=== PATIENT | female | born 1990 | race Caucasian/White ===

== ENCOUNTER 2021-06-28 08:56 | Observation (INO) | payer BC ==
[2021-06-28] MEDS ORDERED: ONDANSETRON 4 MG/2 ML VIAL IVP STA (09:15)
[2021-06-28] MEDS ORDERED: SODIUM CHLORIDE 0.9% 1,000 ML IV ONE (09:16)
--- NOTE | 2021-06-28 09:37 | ED ---
General Adult HPI - General Chief complaint: Arrhythmia/Palpitations Stated complaint: High heart rate Time Seen by Provider: 06/28/21 09:08 Source: patient, RN notes reviewed, old records reviewed Mode of arrival: ambulatory Limitations: no limitations - History of Present Illness Initial comments: 31-year-old female presenting with palpitations and tachycardia over the past approximately one week. Patient states the symptoms began after receiving her coronavirus vaccine. She has had some nausea and vomiting which began today. She's had lightheadedness. No measured fever. No significant dyspnea. - Related Data Previous Rx's Medication Instructions Recorded Amoxicillin/Potassium Clav 1 each PO Q12HR #10 tab 05/19/14 [Augmentin 875-125 Tablet] traMADol HCl [Ultram] 50 mg PO Q4H PRN #20 tab 05/19/14 Allergies Allergy/AdvReac Type Severity Reaction Status Date / Time No Known Allergies Allergy Verified 06/28/21 09:03 Review of Systems ROS Statement: Those systems with pertinent positive or pertinent negative responses have been documented in the HPI. ROS Other: All systems not noted in ROS Statement are negative. Past Medical History Past Medical History: Asthma History of Any Multi-Drug Resistant Organisms: None Reported Past Surgical History: Adenoidectomy, Ear Surgery, Orthopedic Surgery Additional Past Surgical History / Comment(s): eye Past Psychological History: No Psychological Hx Reported Smoking Status: Former smoker Past Alcohol Use History: None Reported Past Drug Use History: None Reported General Exam Limitations: no limitations General appearance: alert, in no apparent distress Head exam: Present: atraumatic, normocephalic Eye exam: Present: normal appearance ENT exam: Present: mucous membranes dry Neck exam: Present: normal inspection. Absent: tenderness, meningismus Respiratory exam: Present: normal lung sounds bilaterally. Absent: respiratory distress, wheezes Cardiovascular Exam: Present: normal rhythm, tachycardia GI/Abdominal exam: Present: soft. Absent: distended, tenderness, guarding Extremities exam: Present: normal inspection, normal capillary refill. Absent: pedal edema, calf tenderness Neurological exam: Present: alert, oriented X3, CN II-XII intact. Absent: motor sensory deficit Psychiatric exam: Present: normal affect, normal mood Skin exam: Present: warm, dry, intact. 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 She does not drink alcohol routinely. EKG Findings - EKG Comments: EKG Findings:: EKG: Normal sinus rhythm, rate of 99, MT interval 132, QRS duration 88, QTC [address] segment elevation. Medical Decision Making - Medical Decision Making 31-year-old female with palpitations, nausea vomiting. This did begin shortly after coronavirus vaccine. Patient is mildly tachycardic upon arrival was stable blood pressure. She has an EKG showing sinus tachycardia without any definitive ischemic changes. Workup is initiated revealing significant laboratory abnormalities including a potassium 2.7. Calcium 6.5, magnesium is 1.3, albumin is 2.5. She does admit to twice weekly plasma donation. She also has been drinking between a half gallon and 1 gallon of water daily. Electrolyte abnormalities corrected with IV medication as well as oral potassium. She will be observed overnight on telemetry with repeat laboratory studies pending in the morning. Case discussed with Dr. Cardenas. - Lab Data Result diagrams: 06/28/21 09:21 06/28/21 09:21 Lab Results 06/28/21 06/28/21 06/28/21 Range/Units 09:21 09:21 09:21 WBC 9.5 (3.8-10.6) k/uL RBC 4.78 (3.80-5.40) m/uL Hgb 14.2 (11.4-16.0) gm/dL Hct 41.1 (34.0-46.0) % MCV 86.0 (80.0-100.0) fL MCH 29.7 (25.0-35.0) pg MCHC 34.6 (31.0-37.0) g/dL RDW 11.5 (11.5-15.5) % Plt Count 442 (150-450) k/uL MPV 6.4 Neutrophils % 65 % Lymphocytes % 26 % Monocytes % 5 % Eosinophils % 2 % Basophils % 1 % Neutrophils # 6.2 (1.3-7.7) k/uL Lymphocytes # 2.5 (1.0-4.8) k/uL Monocytes # 0.5 (0-1.0) k/uL Eosinophils # 0.2 (0-0.7) k/uL Basophils # 0.1 (0-0.2) k/uL PT 10.0 (9.0-12.0) sec INR 0.9 (<1.2) APTT 23.6 (22.0-30.0) sec Sodium (137-145) mmol/L Potassium (3.5-5.1) mmol/L Chloride (98-107) mmol/L Carbon Dioxide (22-30) mmol/L Anion Gap mmol/L BUN (7-17) mg/dL Creatinine (0.52-1.04) mg/dL Est GFR (CKD-EPI)AfAm (>60 ml/min/1.73 sqM) Est GFR (CKD-EPI)NonAf (>60 ml/min/1.73 sqM) Glucose (74-99) mg/dL Calcium (8.4-10.2) mg/dL Magnesium (1.6-2.3) mg/dL Total Bilirubin (0.2-1.3) mg/dL AST (14-36) U/L ALT (4-34) U/L Alkaline Phosphatase (38-126) U/L Troponin I (0.000-0.034) ng/mL Total Protein (6.3-8.2) g/dL Albumin (3.5-5.0) g/dL Urine Color Light Yellow Urine Appearance Cloudy H (Clear) Urine pH 7.5 (5.0-8.0) Ur Specific [place] 1.010 (1.001-1.035) Urine Protein Negative (Negative) Urine Glucose (UA) Negative (Negative) Urine Ketones Negative (Negative) Urine Blood Negative (Negative) Urine Nitrite Negative (Negative) Urine Bilirubin Negative (Negative) Urine Urobilinogen <2.0 (<2.0) mg/dL Ur Leukocyte Esterase Moderate H (Negative) Urine WBC 5 (0-5) /hpf Ur Squamous Epith Cells 7 H (0-4) /hpf Urine Bacteria Few H (None) /hpf Urine Mucus Rare H (None) /hpf Urine HCG, Qual (Not Detectd) Coronavirus (PCR) (Not Detectd) 06/28/21 06/28/21 06/28/21 Range/Units 09:21 09:21 09:21 WBC (3.8-10.6) k/uL RBC (3.80-5.40) m/uL Hgb (11.4-16.0) gm/dL Hct (34.0-46.0) % MCV (80.0-100.0) fL MCH (25.0-35.0) pg MCHC (31.0-37.0) g/dL RDW (11.5-15.5) % Plt Count (150-450) k/uL MPV Neutrophils % % Lymphocytes % % Monocytes % % Eosinophils % % Basophils % % Neutrophils # (1.3-7.7) k/uL Lymphocytes # (1.0-4.8) k/uL Monocytes # (0-1.0) k/uL Eosinophils # (0-0.7) k/uL Basophils # (0-0.2) k/uL PT (9.0-12.0) sec INR (<1.2) APTT (22.0-30.0) sec Sodium 139 (137-145) mmol/L Potassium 2.7 L* (3.5-5.1) mmol/L Chloride 117 H (98-107) mmol/L Carbon Dioxide 16 L (22-30) mmol/L Anion Gap 6 mmol/L BUN 7 (7-17) mg/dL Creatinine 0.49 L (0.52-1.04) mg/dL Est GFR (CKD-EPI)AfAm >90 (>60 ml/min/1.73 sqM) Est GFR (CKD-EPI)NonAf >90 (>60 ml/min/1.73 sqM) Glucose 81 (74-99) mg/dL Calcium 6.5 L (8.4-10.2) mg/dL Magnesium 1.3 L (1.6-2.3) mg/dL Total Bilirubin 0.4 (0.2-1.3) mg/dL AST 13 L (14-36) U/L ALT 14 (4-34) U/L Alkaline Phosphatase 39 (38-126) U/L Troponin I <0.012 (0.000-0.034) ng/mL Total Protein 4.9 L (6.3-8.2) g/dL Albumin 2.5 L (3.5-5.0) g/dL Urine Color Urine Appearance (Clear) Urine pH (5.0-8.0) Ur Specific [place] (1.001-1.035) Urine Protein (Negative) Urine Glucose (UA) (Negative) Urine Ketones (Negative) Urine Blood (Negative) Urine Nitrite (Negative) Urine Bilirubin (Negative) Urine Urobilinogen (<2.0) mg/dL Ur Leukocyte Esterase (Negative) Urine WBC (0-5) /hpf Ur Squamous Epith Cells (0-4) /hpf Urine Bacteria (None) /hpf Urine Mucus (None) /hpf Urine HCG, Qual Not Detected (Not Detectd) Coronavirus (PCR) (Not Detectd) 06/28/21 Range/Units 09:21 WBC (3.8-10.6) k/uL RBC (3.80-5.40) m/uL Hgb (11.4-16.0) gm/dL Hct (34.0-46.0) % MCV (80.0-100.0) fL MCH (25.0-35.0) pg MCHC (31.0-37.0) g/dL RDW (11.5-15.5) % Plt Count (150-450) k/uL MPV Neutrophils % % Lymphocytes % % Monocytes % % Eosinophils % % Basophils % % Neutrophils # (1.3-7.7) k/uL Lymphocytes # (1.0-4.8) k/uL Monocytes # (0-1.0) k/uL Eosinophils # (0-0.7) k/uL Basophils # (0-0.2) k/uL PT (9.0-12.0) sec INR (<1.2) APTT (22.0-30.0) sec Sodium (137-145) mmol/L Potassium (3.5-5.1) mmol/L Chloride (98-107) mmol/L Carbon Dioxide (22-30) mmol/L Anion Gap mmol/L BUN (7-17) mg/dL Creatinine (0.52-1.04) mg/dL Est GFR (CKD-EPI)AfAm (>60 ml/min/1.73 sqM) Est GFR (CKD-EPI)NonAf (>60 ml/min/1.73 sqM) Glucose (74-99) mg/dL Calcium (8.4-10.2) mg/dL Magnesium (1.6-2.3) mg/dL Total Bilirubin (0.2-1.3) mg/dL AST (14-36) U/L ALT (4-34) U/L Alkaline Phosphatase (38-126) U/L Troponin I (0.000-0.034) ng/mL Total Protein (6.3-8.2) g/dL Albumin (3.5-5.0) g/dL Urine Color Urine Appearance (Clear) Urine pH (5.0-8.0) Ur Specific [place] (1.001-1.035) Urine Protein (Negative) Urine Glucose (UA) (Negative) Urine Ketones (Negative) Urine Blood (Negative) Urine Nitrite (Negative) Urine Bilirubin (Negative) Urine Urobilinogen (<2.0) mg/dL Ur Leukocyte Esterase (Negative) Urine WBC (0-5) /hpf Ur Squamous Epith Cells (0-4) /hpf Urine Bacteria (None) /hpf Urine Mucus (None) /hpf Urine HCG, Qual (Not Detectd) Coronavirus (PCR) Not Detected (Not Detectd) Disposition Clinical Impression: Tachycardia, Hypokalemia, Hypomagnesemia Disposition: ADMITTED IP TO THIS [facility] Condition: Stable Is patient prescribed a controlled substance at d/c from ED?: No Referrals: Jeannette Saleem DO [Primary Care Provider] - 1-2 days Decision to Admit Reason: Admit from EC Decision Date: 06/28/21 Decision Time: 11:44
[2021-06-28 09:38] LABS: Basophils # (A) 0.1 k/uL (0-0.2); Basophils % (A) 1 %; Eosinophils # (A) 0.2 k/uL (0-0.7); Eosinophils % (A) 2 %; HCT 41.1 % (34.0-46.0); HGB 14.2 gm/dL (11.4-16.0); Lymphocytes # (A) 2.5 k/uL (1.0-4.8); Lymphocytes % (A) 26 %; MCH 29.7 pg (25.0-35.0); MCHC 34.6 g/dL (31.0-37.0); Mean Platelet Volume 6.4; Monocytes # (A) 0.5 k/uL (0-1.0); Monocytes % (A) 5 %; Neutrophils # (A) 6.2 k/uL (1.3-7.7); Neutrophils % (A) 65 %; Platelet Count 442 k/uL (150-450); RBC 4.78 m/uL (3.80-5.40); RDW 11.5 % (11.5-15.5); WBC 9.5 k/uL (3.8-10.6)
[2021-06-28 09:48] LABS: INR 0.9 (<1.2); Partial Thromboplastin Time 23.6 sec (22.0-30.0)
[2021-06-28 09:53] LABS: ALT 14 U/L (4-34); AST 13 U/L (14-36); African American GFR (CKD) >90 (>60 ml/min/1.73 sqM); Albumin 2.5 g/dL (3.5-5.0); Alkaline Phosphatase 39 U/L (38-126); Anion Gap 6 mmol/L; Blood Urea Nitrogen 7 mg/dL (7-17); Calcium 6.5 mg/dL (8.4-10.2); Carbon Dioxide 16 mmol/L (22-30); Chloride 117 mmol/L (98-107); Glucose 81 mg/dL (74-99); Magnesium 1.3 mg/dL (1.6-2.3); Non-African American GFR(CKD) >90 (>60 ml/min/1.73 sqM); Sodium 139 mmol/L (137-145); Total Bilirubin 0.4 mg/dL (0.2-1.3); Total Protein 4.9 g/dL (6.3-8.2)
--- NOTE | 2021-06-28 09:54 | XR ---
EXAMINATION TYPE: XR chest 2V DATE OF EXAM: 06/28/2021 COMPARISON: NONE HISTORY: Chest pain TECHNIQUE: Frontal and lateral views of the chest are obtained. FINDINGS: There is no focal air space opacity. No evidence for pneumothorax. No pleural effusion. The cardiac silhouette size is within normal limits. The osseous structures are grossly intact. IMPRESSION: 1. No acute cardiopulmonary process.
[2021-06-28 10:05] LABS: Potassium 2.7 mmol/L (3.5-5.1)
[2021-06-28] MEDS: POTASSIUM CHLORIDE 10 MEQ in WATER FOR INJECTION 1 100ML.BAG IVPB SCH ×4 (10:50→15:43)
[2021-06-28] MEDS: MAGNESIUM SULFATE-D5W PMX 1 GM in DEXTROSE/WATER 1 100ML.BAG IVPB SCH ×2 (10:54→11:58)
[2021-06-28 11:12] LABS: Appearance,Urine Cloudy (Clear); Bacteria,Urine Few /hpf; Bilirubin,Urine Negative (Negative); Blood,Urine Negative (Negative); Color,Urine Light Yellow; Glucose,Urine (UA) Negative (Negative); Ketones,Urine Negative (Negative); Leukocyte Esterase,Urine Moderate (Negative); Mucus,Urine Rare /hpf; Nitrite,Urine Negative (Negative); PH, Urine 7.5 (5.0-8.0); Protein,Urine Negative (Negative); Squamous Epithelial Cell,Urine 7 /hpf (0-4); Urobilinogen,Urine <2.0 mg/dL (<2.0); WBC,Urine 5 /hpf (0-5)
[2021-06-28] MEDS ORDERED: POTASSIUM CHLORIDE ER 20 MEQ TAB.ER PO STA ×2 (11:20→15:21)
[2021-06-28] MEDS ORDERED: NALOXONE 0.4 MG/ML 1 ML VIAL IV PRN (11:40)
[2021-06-28] MEDS ORDERED: 0.9% NACL WITH KCL 20 MEQ/L 1,000 ML IV SCH (14:00)
[2021-06-28] MEDS ORDERED: LACTULOSE 20 GM/30 ML CUP PO PRN (15:23)
[2021-06-28] MEDS ORDERED: MELATONIN 3 MG TABLET PO PRN (15:23)
[2021-06-28] MEDS ORDERED: CALCIUM CARBONATE 500 MG CHEWABLE PO PRN (15:23)
[2021-06-28] MEDS: ACETAMINOPHEN TAB 325 MG TAB PO PRN ×2 (15:42→20:48)
[2021-06-28] MEDS: MAGNESIUM OXIDE 400 MG TAB PO SCH ×2 (16:33→20:47)
[2021-06-28] MEDS: ENOXAPARIN 40 MG/0.4 ML SYRINGE SQ SCH (18:00)
[2021-06-28 19:58] LABS: African American GFR (CKD) >90 (>60 ml/min/1.73 sqM); Anion Gap 6 mmol/L; Blood Urea Nitrogen 7 mg/dL (7-17); Carbon Dioxide 23 mmol/L (22-30); Chloride 108 mmol/L (98-107); Glucose 99 mg/dL (74-99); Non-African American GFR(CKD) >90 (>60 ml/min/1.73 sqM); Potassium 4.4 mmol/L (3.5-5.1); Sodium 137 mmol/L (137-145)
--- NOTE | 2021-06-28 20:15 | P.HPIM ---
History of Present Illness H&P Date: 06/28/21 Chief Complaint: Tired This is a very pleasant 31-year-old patient of Dr. Quinones. Chronic stable conditions include ADHD for which she takes Adderall. She also had asthma which she is going on and off. She also takes a hormonal patch for control. Visits her boyfriend. About 2 weeks ago patient currently routine checkup done and she was told that her sodium is slightly low. It is not bothersome to her family doctor she was told to come back for annual checkup. About 7 days ago patient took off for a short of more done on vaccine. 5 days ago after having sexual activity with her boyfriend she felt dizzy tired a bit lightheaded. Just prior to that she had smoked marijuana. She does that very rarely. Patient also donates plasma about twice a week. And has done for about 2 months. Denied any fever and chills. No change in appetite or change in bowel or urine. Decided to come in. No nausea vomiting. Lab work in the ER showed a potassium of 2.7 bicarb of 16. Magnesia 1.3. Patient otherwise rather healthy. 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 Does not smoke or drink alcohol. Marijuana very occasionally Family history: Father stage IV prostate cancer Physical examination: VITAL SIGNS: 97.8, 123, 20, 142/90, 97% room air GENERAL: BMI 35.5, declining but awake, comfortable. EYES: Pupils equal. Conjunctiva normal. HEENT: External appearance of nose and ears normal, oral cavity grossly normal. NECK: JVD not raised; masses not palpable. HEART: First and second heart sounds are normal; no edema. LUNGS: Respiratory rate normal; clear to auscultation. ABDOMEN: Soft, nontender, liver spleen not palpable, no masses palpable. PSYCH: Alert and oriented x3; mood and affect normal. NEUROLOGICAL: Cranial nerves grossly intact; no facial asymmetry, power and sensation grossly intact. LYMPHATICS: No lymph nodes palpable in the axilla and neck INVESTIGATIONS, reviewed in the clinical context: WBC 9.5 hemoglobin 14.2 platelets 442 sodium 139 potassium 2.7 bicarb 16 BUN 7 creatinine 0.49 magnesia 1.3 UA positive for leukoesterase, squamous epithelial cells 7 Coronavirus [PCR]: Not detected EKG tracing personally reviewed by me-normal sinus rhythm. Rate 99 Chest x-ray film personally reviewed by me-no obvious infiltrate Assessment and plan: -Patient presented mixture of symptoms including dizziness lightheadedness. Tired and rundown. Acute medical asthenia This is most likely a combination of the fact that patient has done well donated plasma twice a week for 2 months, combined with smoking marijuana before sexual activity. And possible decreased oral intake. IV fluids. -It's also possible that patient may have had a asymptomatic COVID 19 infection before. And in the first dose she received she could have a diet in response to the same. Patient was counseled that she should take Dose. And this is simply just possible. -Hypokalemia Replace potassium -Hypomagnesemia Replace magnesium -Contaminated urine. Patient has no urinary symptoms. No antibiotics indicated -Obesity BMI 35.5 Weight loss measures Replace potassium and magnesium. IV fluids. Activity as tolerated. Care was discussed length with the patient. Repeat labs in the morning. Past Medical History Past Medical History: Asthma Additional Past Medical History / Comment(s): Neck pain/headaches. 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 Smoking Status: Never smoker - Past Family History Father Family Medical History: Cancer Additional Family Medical History / Comment(s): Father has stage IV prostate cancer Mother Family Medical History: No Reported History Additional Family Medical History / Comment(s): Mother is healthy Medications and Allergies Home Medications Medication Instructions Recorded Confirmed Type Dextroamphetamine/Amphetamine 20 mg PO QAM PRN 06/28/21 06/28/21 History [Adderall Xr] Etonogestrel [Nexplanon] 1 implant SQ [id number] 06/28/21 06/28/21 History Multivitamins, Thera [Multivitamin 1 tab PO DAILY 06/28/21 06/28/21 History (formulary)] Allergies Allergy/AdvReac Type Severity Reaction Status Date / Time No Known Allergies Allergy Verified 06/28/21 12:07 Physical Exam Vitals: Vital Signs Temp Pulse Pulse Resp BP Pulse Ox 06/28/21 18:05 97 16 148/93 99 06/28/21 16:36 90 16 132/86 100 06/28/21 14:00 89 16 130/66 98 06/28/21 10:59 107 H 16 134/86 97 06/28/21 09:17 123 H 18 142/90 97 06/28/21 09:11 114 H 06/28/21 09:00 97.8 F 123 H 20 163/93 100 Intake and Output 06/28/21 06/28/21 06/28/21 06:59 14:59 22:59 Other: Weight 99.79 kg Results CBC & Chem 7: 06/28/21 09:21 06/28/21 19:19 Labs: Abnormal Lab Results - Last 24 Hours (Table) 06/28/21 06/28/21 06/28/21 Range/Units 09:21 09:21 19:19 Potassium 2.7 L* (3.5-5.1) mmol/L Chloride 117 H 108 H (98-107) mmol/L Carbon Dioxide 16 L (22-30) mmol/L Creatinine 0.49 L (0.52-1.04) mg/dL Calcium 6.5 L (8.4-10.2) mg/dL Magnesium 1.3 L (1.6-2.3) mg/dL AST 13 L (14-36) U/L Total Protein 4.9 L (6.3-8.2) g/dL Albumin 2.5 L (3.5-5.0) g/dL Urine Appearance Cloudy H (Clear) Ur Leukocyte Esterase Moderate H (Negative) Ur Squamous Epith Cells 7 H (0-4) /hpf Urine Bacteria Few H (None) /hpf Urine Mucus Rare H (None) /hpf Thrombosis Risk Factor Assmnt - Choose All That Apply Any of the Below Risk Factors Present?: Yes Each Factor Represents 1 point: Obesity (BMI >25) Other Risk Factors: No Other congenital or acquired thrombophilia - If yes, enter type in comment: No Thrombosis Risk Factor Assessment Total Risk Factor Score: 1 Thrombosis Risk Factor Assessment Level: Low Risk
[2021-06-28] MEDS: ALPRAZolam 0.25 MG TAB PO PRN (22:01)
[2021-06-29] MEDS: LACTATED RINGERS 1,000 ML IV SCH ×3 (03:34→12:14)
[2021-06-29] MEDS: ENOXAPARIN 40 MG/0.4 ML SYRINGE SQ SCH (07:38)
[2021-06-29] MEDS: MAGNESIUM OXIDE 400 MG TAB PO SCH (07:38)
[2021-06-29] MEDS: ALPRAZolam 0.25 MG TAB PO PRN (07:40)
[2021-06-29 08:23] VITALS: BP 138/84; PULSE 97; RESP 18; TEMP 97.5
[2021-06-29 11:12] LABS: ALT 20 U/L (4-34); African American GFR (CKD) >90 (>60 ml/min/1.73 sqM); Albumin 4.6 g/dL (3.5-5.0); Anion Gap 11 mmol/L; Blood Urea Nitrogen 7 mg/dL (7-17); Calcium 9.6 mg/dL (8.4-10.2); Carbon Dioxide 21 mmol/L (22-30); Chloride 104 mmol/L (98-107); Glucose 112 mg/dL (74-99); Non-African American GFR(CKD) >90 (>60 ml/min/1.73 sqM); Sodium 136 mmol/L (137-145); Total Bilirubin 0.8 mg/dL (0.2-1.3); Total Protein 7.6 g/dL (6.3-8.2)
[2021-06-29 11:13] LABS: AST 21 U/L (14-36); Potassium 4.5 mmol/L (3.5-5.1)
[2021-06-29 11:14] LABS: Alkaline Phosphatase 60 U/L (38-126); Magnesium 2.1 mg/dL (1.6-2.3)
[2021-06-29 12:23] LABS: Basophils # (A) 0.1 k/uL (0-0.2); Basophils % (A) 1 %; Eosinophils # (A) 0.1 k/uL (0-0.7); Eosinophils % (A) 1 %; HCT 43.2 % (34.0-46.0); HGB 14.3 gm/dL (11.4-16.0); Lymphocytes # (A) 1.9 k/uL (1.0-4.8); Lymphocytes % (A) 18 %; MCH 29.4 pg (25.0-35.0); MCHC 33.1 g/dL (31.0-37.0); MCV 88.7 fL (80.0-100.0); Mean Platelet Volume 7.1; Monocytes # (A) 0.4 k/uL (0-1.0); Monocytes % (A) 4 %; Neutrophils # (A) 8.2 k/uL (1.3-7.7); Neutrophils % (A) 77 %; Platelet Count 469 k/uL (150-450); RBC 4.87 m/uL (3.80-5.40); RDW 11.7 % (11.5-15.5); WBC 10.7 k/uL (3.8-10.6)
--- NOTE | 2021-06-29 16:48 | P.DS ---
Providers Date of admission: 06/28/21 11:41 Expected date of discharge: 06/29/21 Attending physician: Bud Cardenas Primary care physician: Jeannette Saleem [facility] Course: Chief Complaint: Tired This is a very pleasant 31-year-old patient of Dr. Quinones. Chronic stable conditions include ADHD for which she takes Adderall. She also had asthma which she is going on and off. She also takes a hormonal patch for control. Visits her boyfriend. About 2 weeks ago patient currently routine checkup done and she was told that her sodium is slightly low. It is not bothersome to her family doctor she was told to come back for annual checkup. About 7 days ago patient took off for a short of more done on vaccine. 5 days ago after having sexual activity with her boyfriend she felt dizzy tired a bit lightheaded. Just prior to that she had smoked marijuana. She does that very rarely. Patient also donates plasma about twice a week. And has done for about 2 months. Denied any fever and chills. No change in appetite or change in bowel or urine. Decided to come in. No nausea vomiting. Lab work in the ER showed a potassium of 2.7 bicarb of 16. Magnesia 1.3. Patient otherwise rather healthy. Today: Patient got rather anxious overnight. About the whole presentation here. Electrolytes are normalized. Patient has a friend visiting. Had a lengthy discussion with the patient about lifestyle modifications. Including mindfulness. Diet changes. Questions were answered. 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 Marijuana very occasionally Family history: Father stage IV prostate cancer Physical examination: VITAL SIGNS: 97.5, 97, 18, 1:30/84, 98% room air GENERAL: BMI 35.5, sitting up in bed, awake, comfortable EYES: Pupils equal. Conjunctiva normal. HEENT: External appearance of nose and ears normal, oral cavity grossly normal. NECK: JVD not raised; masses not palpable. HEART: First and second heart sounds are normal; no edema. LUNGS: Respiratory rate normal; clear to auscultation. ABDOMEN: Soft, nontender, liver spleen not palpable, no masses palpable. PSYCH: Alert and oriented x3; mood and affect slightly anxious INVESTIGATIONS, reviewed in the clinical context: June 29: White count 10.7 hemoglobin 14.34.5 bicarb 21 creatinine 0.71 WBC 9.5 hemoglobin 14.2 platelets 442 sodium 139 potassium 2.7 bicarb 16 BUN 7 creatinine 0.49 magnesia 1.3 UA positive for leukoesterase, squamous epithelial cells 7 Coronavirus [PCR]: Not detected EKG tracing personally reviewed by me-normal sinus rhythm. Rate 99 Chest x-ray film personally reviewed by me-no obvious infiltrate Assessment and plan: -Patient presented mixture of symptoms including dizziness lightheadedness. Tired and rundown. Acute medical asthenia This is most likely a combination of the fact that patient has donated plasma twice a week for 2 months, combined with smoking marijuana before sexual activity. And possible decreased oral intake. IV fluids. -It's also possible that patient may have had a asymptomatic COVID 19 infection before. And the first dose she received she could have a prominent immune response to the same. Patient was counseled that she should take the second dose -Hypokalemia: Corrected Replace potassium -Hypomagnesemia: Corrected Replace magnesium -Contaminated urine. Patient has no urinary symptoms. No antibiotics indicated -Obesity BMI 35.5 Weight loss measures discussed -Situational anxiety Mindfulness discussed Disposition: Home Plan - Discharge Summary Discharge Rx Participant: No New Discharge Prescriptions: Continue Etonogestrel [Nexplanon] 1 implant SQ [id number] Dextroamphetamine/Amphetamine [Adderall Xr] 20 mg PO QAM PRN PRN Reason: adhd Multivitamins, Thera [Multivitamin (formulary)] 1 tab PO DAILY Discharge Medication List Dextroamphetamine/Amphetamine [Adderall Xr] 20 mg PO QAM PRN 06/28/21 [History] Etonogestrel [Nexplanon] 1 implant SQ [id number] 06/28/21 [History] Multivitamins, Thera [Multivitamin (formulary)] 1 tab PO DAILY 06/28/21 [History] Follow up Appointment(s)/Referral(s): Jeannette Saleem DO [Primary Care Provider] - 1-2 days Discharge Disposition: HOME SELF-CARE
== END 2021-06-29 13:26 | disposition home or self-care (01) ==
LOC: EC 08:56 → 5NMEDONC 11:41 → INTOOBSV 11:41 → 1SOBS 17:44 → UNDODISIN 06-29 13:26
PROVIDERS: ADMIT Hospitalist; ATTEND Hospitalist
DX: R42 Dizziness and giddiness (principal); R53.1 Weakness; E87.6 Hypokalemia; E83.42 Hypomagnesemia; E66.9 Obesity, unspecified; Z68.35 Body mass index [BMI] 35.0-35.9, adult; F41.8 Other specified anxiety disorders; F90.9 Attention-deficit hyperactivity disorder, unspecified type; J45.909 Unspecified asthma, uncomplicated; M54.2 Cervicalgia; R51.9 Headache, unspecified; R00.0 Tachycardia, unspecified; Z20.822 Contact with and (suspected) exposure to COVID-19; Z87.891 Personal history of nicotine dependence; Z79.3 Long term (current) use of hormonal contraceptives; Z71.3 Dietary counseling and surveillance; Z71.89 Other specified counseling; Z80.42 Family history of malignant neoplasm of prostate
CPT/HCPCS: 96372 ×2; 96368; 96361; 96365; 96366; 96375; 99285; 36415; 93005; 80053 ×2; 80048; 83735 ×2; 84484; 85025 ×2; 85610; 85730; 81001; 81025; 87635; 71046; G0378 ×3; J2405; J1650 ×2; J3475; J3480; 96374

== ENCOUNTER → 2022-03-12 | Outpatient (CLI) | payer BC ==
[2022-03-12 23:19] LABS: Basophils # (A) 0.04 X 10*3/uL (0.00-0.10); Basophils % (A) 0.4 %; Eosinophils # (A) 0.08 X 10*3/uL (0.04-0.35); Eosinophils % (A) 0.9 %; HCT 40.1 % (37.2-46.3); HGB 13.5 g/dL (12.0-15.0); Immature Grans, Automated 0.2 %; Lymphocytes # (A) 2.76 X 10*3/uL (0.90-5.00); Lymphocytes % (A) 30.2 %; MCH 29.3 pg (27.0-32.0); MCHC 33.7 g/dL (32.0-37.0); Mean Platelet Volume 8.7 fL (9.5-12.2); Monocytes # (A) 0.57 X 10*3/uL (0.20-1.00); Monocytes % (A) 6.2 %; NRBC Per 100 WBC 0 /100 WBCS (0.0-0.0); Neutrophils # (A) 5.68 X 10*3/uL (1.80-7.70); Neutrophils % (A) 62.1 %; Platelet Count 404 X 10*3/uL (140-440); RBC 4.61 X 10*6/uL (4.10-5.20); RDW 12.1 % (11.5-14.5); WBC 9.15 X 10*3/uL (4.50-10.00)
[2022-03-12 23:47] LABS: % Iron Saturation 13.63 (12.00-45.00); ALT 22 U/L (8-44); AST 12 U/L (13-35); African American GFR (CKD) 107.7 (60.0-200.0); Albumin 4.6 g/dL (3.8-4.9); Albumin/Globulin Ratio 1.79 (1.60-3.17); Alkaline Phosphatase 65 U/L (41-126); BUN/Creat Ratio 11.36 Ratio (12.00-20.00); Blood Urea Nitrogen 9.5 mg/dL (9.0-27.0); Calcium 9.8 mg/dL (8.7-10.3); Chloride 102 mmol/L (96-109); Globulin 2.6 g/dL (1.6-3.3); Glucose 88 mg/dL (70-110); Iron 52 ug/dL (50-170); Non-African American GFR(CKD) 92.9 (60.0-200.0); Potassium 4.3 mmol/L (3.5-5.5); Sodium 139 mmol/L (135-145); Total Iron Binding Capacity 382 ug/dL (228-460); Total Protein 7.2 g/dL (6.2-8.2)
== END | disposition home or self-care (01) ==
LOC: LABWHC1 15:27
PROVIDERS: ATTEND Family Medicine
DX: R53.83 Other fatigue (principal)
CPT/HCPCS: 36415; 80053; 82306; 82607; 83540; 83550; 84443; 85025

== ENCOUNTER → 2022-10-15 | Outpatient (CLI) | payer BC ==
[2022-10-15 14:24] LABS: Basophils # (A) 0.06 X 10*3/uL (0.00-0.10); Basophils % (A) 0.8 %; Eosinophils # (A) 0.12 X 10*3/uL (0.04-0.35); Eosinophils % (A) 1.6 %; HCT 40.5 % (37.2-46.3); HGB 13.3 g/dL (12.0-15.0); Immature Grans, Automated 0.3 %; Lymphocytes % (A) 31.3 %; MCH 29.3 pg (27.0-32.0); MCHC 32.8 g/dL (32.0-37.0); MCV 89.2 fL (80.0-97.0); Mean Platelet Volume 8.6 fL (9.5-12.2); Monocytes % (A) 6.8 %; NRBC Per 100 WBC 0 /100 WBCS (0.0-0.0); Neutrophils # (A) 4.34 X 10*3/uL (1.80-7.70); Neutrophils % (A) 59.2 %; Platelet Count 380 X 10*3/uL (140-440); RBC 4.54 X 10*6/uL (4.10-5.20); RDW 12.3 % (11.5-14.5); WBC 7.34 X 10*3/uL (4.50-10.00)
[2022-10-15 17:24] LABS: ALT 21 U/L (8-44); AST 14 U/L (13-35); African American GFR (CKD) 112.3 (60.0-200.0); Albumin 4.5 g/dL (3.8-4.9); Albumin/Globulin Ratio 1.96 (1.60-3.17); Alkaline Phosphatase 61 U/L (41-126); BUN/Creat Ratio 10.75 Ratio (12.00-20.00); Blood Urea Nitrogen 8.6 mg/dL (9.0-27.0); Calcium 9.5 mg/dL (8.7-10.3); Carbon Dioxide 21.5 mmol/L (20.0-27.5); Chloride 105 mmol/L (96-109); Chol/HDL Ratio 3.87 Ratio; Globulin 2.3 g/dL (1.6-3.3); Glucose 98 mg/dL (70-110); LDL Cholesterol,Calculated 109.3 mg/dL (0.0-131.0); Non-African American GFR(CKD) 96.9 (60.0-200.0); Potassium 4.8 mmol/L (3.5-5.5); Sodium 139 mmol/L (135-145); Total Protein 6.8 g/dL (6.2-8.2); VLDL Calculation 14.46 mg/dL (5.00-40.00)
== END | disposition home or self-care (01) ==
LOC: LABWHC1 09:15
PROVIDERS: ATTEND Family Medicine
DX: Z00.00 Encounter for general adult medical examination without abnormal findings (principal)
CPT/HCPCS: 36415; 80053; 80061; 84443; 85025

== ENCOUNTER → 2023-07-18 | Outpatient (CLI) | payer BC ==
--- NOTE | 2023-07-18 13:22 | CT ---
EXAMINATION TYPE: CT sinus wo con CT DLP: 650 mGycm, Automated exposure control for dose reduction was used. DATE OF EXAM: 07/18/2023 10:03 AM COMPARISON: 05/19/2014. CLINICAL INDICATION:Female, 33 years old with history of J32.0 CHRONIC MAXILLARY SINUSITIS; , sinusit is TECHNIQUE: Multiple thin axial images were obtained through the paranasal sinuses without the use of IV contrast. Additional coronal and sagittal reformatted images were submitted for evaluation. Contrast used: none Oral contrast used: none FINDINGS: Minimal paranasal sinus disease. The ostiomeatal units, frontonasal and sphenoethmoidal recesses are patent. There is a right mala bullosa of the middle turbinate. The orbits and globes appear within normal limits.. The visualized portions of the intracranial structures is intact. The mastoid air scar ls and temporal bones are without acute abnormality. There is cerumen impaction noted in the right ex ternal auditory canal. No evidence of fracture or dislocation of the temporomandibular joints. IMPRESSION: 1. No significant mucosal sinus disease. 2. The ostiomeatal units, frontonasal and sphenoethmoidal recesses are clear.
== END | disposition home or self-care (01) ==
LOC: RADCTMAIN 09:42
PROVIDERS: ATTEND Otolaryngology
DX: J32.0 Chronic maxillary sinusitis (principal)
CPT/HCPCS: 70486

== ENCOUNTER → 2023-09-23 | Outpatient (CLI) | payer BC ==
--- NOTE | 2023-09-23 22:09 | XR ---
EXAMINATION TYPE: XR chest 2V DATE OF EXAM: 09/23/2023 COMPARISON: 06/28/2021 HISTORY: 33-year-old female [id number], cough TECHNIQUE: Frontal and lateral views FINDINGS: The cardiomediastinal silhouette, aorta, and pulmonary vasculature are within normal limits. Lungs an d pleural spaces are clear. IMPRESSION: No acute cardiopulmonary process.
== END | disposition home or self-care (01) ==
LOC: RADXRMAIN 15:11
PROVIDERS: ATTEND Family Medicine
DX: R05.9 Cough, unspecified (principal)
CPT/HCPCS: 71046

== ENCOUNTER → 2024-05-05 | Outpatient (CLI) | payer BC ==
[2024-05-05 18:32] LABS: Basophils # (A) 0.06 X 10*3/uL (0.00-0.10); Basophils % (A) 0.7 %; Eosinophils % (A) 1.2 %; HGB 13.2 g/dL (12.0-15.0); Lymphocytes # (A) 2.61 X 10*3/uL (0.90-5.00); MCH 29.5 pg (27.0-32.0); MCHC 33.8 g/dL (32.0-37.0); MCV 87.1 FL (80.0-97.0); Mean Platelet Volume 8.7 FL (9.5-12.2); Monocytes # (A) 0.83 X 10*3/uL (0.20-1.00); Monocytes % (A) 9.8 %; NRBC Per 100 WBC 0 X 10*3/uL (0.00-0.01); Neutrophils # (A) 4.81 X 10*3/uL (1.80-7.70); Neutrophils % (A) 57.1 %; Platelet Count 387 X 10*3/uL (140-440); RBC 4.48 X 10*6/uL (4.10-5.20); RDW 12.2 % (11.5-14.5); WBC 8.43 X 10*3/uL (4.50-10.00)
[2024-05-05 19:05] LABS: % Iron Saturation 18.33 (12.00-45.00); BUN/Creat Ratio 16.57 Ratio (12.00-20.00); Blood Urea Nitrogen 11.6 mg/dL (9.0-27.0); Carbon Dioxide 22.5 mmol/L (21.6-31.8); Chloride 105 mmol/L (96-109); Glucose 85 mg/dL (70-110); Iron 66 UG/DL (50-170); Potassium 4.3 mmol/L (3.5-5.5); Sodium 140 mmol/L (135-145); Total Iron Binding Capacity 360 UG/DL (228-460)
[2024-05-05 19:06] LABS: ALT 27 U/L (8-44); AST 17 U/L (13-35); Albumin 4.5 g/dL (3.8-4.9); Albumin/Globulin Ratio 1.73 Ratio (1.60-3.17); Alkaline Phosphatase 69 U/L (41-126); Calcium 9.5 mg/dL (8.7-10.3); Globulin 2.6 g/dL (1.6-3.3); T4, Free (Free Thyroxine) 1.23 ng/dL (0.80-1.80); Total Bilirubin 0.3 mg/dL (0.3-1.2); Total Protein 7.1 g/dL (6.2-8.2)
== END | disposition home or self-care (01) ==
LOC: LABWHC1 13:08
PROVIDERS: ATTEND Dermatology MOHS-Micrographic Surgery
CPT/HCPCS: 36415; 80053; 82306; 83540; 83550; 84439; 84443; 85025